=== PATIENT | female | born 1975 | race Caucasian/White ===

== ENCOUNTER → 2016-06-11 | Outpatient (CLI) | payer OTHER ==
--- NOTE | 2016-06-16 14:14 | MM ---
Reason for exam: screening (asymptomatic). Last mammogram was performed 5 years ago. History: Family history of breast cancer in mother. Physical Findings: A clinical breast exam by your physician is recommended on an annual basis and results should be correlated with mammographic findings. MG Screening Mammo w CAD Bilateral CC and MLO view(s) were taken. XCCL view(s) were taken of the left breast. Prior study comparison: June 18, 2011, mammogram, performed at [facility]. There are scattered fibroglandular densities. Finding: There are typically benign round, diffuse/scattered calcifications in the right breast. No significant changes in finding since June 18, 2011. ASSESSMENT: Benign, BI-RAD 2 RECOMMENDATION: Routine screening mammogram of both breasts in 1 year.
== END | disposition home or self-care (01) ==
LOC: RADMAMWWP 07:58
PROVIDERS: ATTEND Family Medicine
DX: Z12.31 Encounter for screening mammogram for malignant neoplasm of breast (principal)

== ENCOUNTER 2016-09-01 10:07 | Day surgery (SDC) | payer OTHER ==
[2016-08-28 16:00] VITALS: BMI 51.5
[~2016-09-01 10:07] MED LIST: LACTATED RINGERS 1,000 ML IV SCH
[2016-09-01 10:47] VITALS: RESP 16; TEMP 97.2
[2016-09-01 11:07] LABS: Glucose,Whole Blood 152 mg/dL (75-99)
[2016-09-01] MEDS ORDERED: LIDOCAINE 1% 20 ML VIAL (10MG/ML) FOR IV START INTRADERMA ONE (11:09)
[2016-09-01] MEDS ORDERED: MIDAZOLAM 2 MG/2 ML VIAL ONE (11:12)
[2016-09-01] MEDS ORDERED: fentaNYL (PF) 50 MCG/ML 2 ML AMP ONE (11:12)
[2016-09-01 11:46] LABS: ALT 71 U/L (9-52); AST 59 U/L (14-36)
[2016-09-01 11:51] LABS: Rheumatoid Factor, Qnt <9 IU/mL (<12)
--- NOTE | 2016-09-01 11:56 | P.PCN ---
Date of Procedure: 09/01/16 Preoperative Diagnosis: Postoperative Diagnosis: Procedure(s) Performed: Implants: Surgeon: Kamlesh Duarte Pathology: none sent Condition: stable Disposition: PACU Indications for Procedure: Operative Findings: Description of Procedure: PREOPERATIVE DIAGNOSIS: 1-Dizziness, headaches; r/o MS POSTOPERATIVE DIAGNOSIS: same PROCEDURE 1. Diagnostic lumbar puncture ANESTHESIA: Local with 1% lidocaine; IV sedation with Versed/fentanyl EBL: Minimal PROCEDURE INDICATION: The patient with dizziness and headaches and white lesions on brain MRI presents for diagnostic lumbar puncture as ordered by patients neurologist, Dr. Murphy. No use of blood thinners. Fluoroscopy was used because of patient's large body habitus. PROCEDURE DESCRIPTION / TECHNIQUE: The patient was seen and identified in the preoperative area. Risks, benefits, complications, and alternatives were discussed with the patient, including but not limited to bleeding, infection, nerve damage, headache, and allergic reactions to medications. The patient agreed to proceed with the procedure and signed the informed consent after all questions were answered. IV was started and blood was drawn for labwork by preop nursing staff, and vital signs were stable. Patient was taken to the OR and time out was completed to verify proper patient , procedure, and allergies. The patient was placed in the prone position on procedure table. The lumbosacral area was prepped and draped in the usual sterile fashion. Vital signs were closely monitored during the procedure and conscious sedation was used to decrease patient's anxiety. Using AP fluoroscopy, the L5-S1 nterlaminar space was identified, and the skin over this site was marked and then infiltrated with 1% lidocaine subcutaneously. Subsequently, a 22-gauge 7 (seven)-inch Quincke needle was inserted and advanced toward the epidural space. After a dural pop was noted , the stylet was removed and clear CSF was flowing freely through the needle. 12 ml was withdrawn and sent for testing as ordered by patients neurologist. Needle was withdrawn intact, skin was cleansed, and bandages were applied. COMPLICATIONS: None DISPOSITION / PLANS: The patient was placed in a supine position and transferred to the recovery area in a stable condition for observation. There was no evidence of lower extremity motor or sensory deficit after the procedure. Home discharge instructions were given to the patient by the staff, including to consume lots of oral fluids, to lie flat, and to consume a high amount of caffeine. The patient was reexamined prior to discharge and there were no issues. The patient will schedule a follow up with neurologist in 2-4 weeks to discuss results.
[2016-09-01] MEDS ORDERED: IV FLUID CONTINUATION 650 ML IV ONE (11:57)
[2016-09-01 12:07] LABS: Glucose,CSF 83 mg/dL (40-70)
[2016-09-01 12:19] VITALS: BP 112/65; PULSE 86
--- NOTE | 2016-09-01 12:39 | FL ---
EXAMINATION TYPE: FL guidance operating room DATE OF EXAM: 09/01/2016 12:19 PM HISTORY: Flouroscopy time 27 seconds of fluoroscopy provided. IMPRESSION: 1. Fluoroscopy time.
[2016-09-01 13:44] LABS: Appearance,CSF Clear
[2016-09-01 13:45] LABS: Red Blood Cell, CSF Crenated 0 %; Red Blood Cell, CSF Fresh 100 %
[2016-09-01 16:57] LABS: ANA w/Reflex to Titer NEGATIVE (NEGATIVE)
[2016-09-01 20:14] LABS: Treponemal Ab Non-Reactive (Non-Reactive)
[2016-09-02 06:06] LABS: Lyme Antibodies Total(IgG/IgM) 0.07 (<0.90)
[2016-09-03 23:57] LABS: Lyme Specimen Source Not Provided
== END 2016-09-01 15:33 | disposition home or self-care (01) ==
LOC: ORPAIN 10:07
PROVIDERS: ATTEND Anesthesiology
DX: R42 Dizziness and giddiness (principal); R51 Headache; E66.9 Obesity, unspecified; Z68.43 Body mass index [BMI] 50.0-59.9, adult
CPT/HCPCS: 81025; 86235 ×3; 87476; 86592; 86618; 84439; 88108; 84157; 82945; 82040; 82042; 82784; 83916; 82164 ×2; 83873; 84443; 84450; 84460; 85730; 86431; 85613; 89050; 85732; 86780; 86038; 86225; 62270; 99152; J2250; J3010

== ENCOUNTER 2016-11-03 08:22 | Emergency (ER) | payer OTHER ==
[2016-11-03 08:31] VITALS: BP 137/65; PULSE 88; RESP 18; TEMP 97
--- NOTE | 2016-11-03 08:54 | ED ---
General Adult HPI - General Chief complaint: ENT Stated complaint: Back Pain and Ear Pain Time Seen by Provider: 11/03/16 08:45 Source: patient, RN notes reviewed Mode of arrival: ambulatory Limitations: no limitations - History of Present Illness Initial comments: Patient 41-year-old female who presents emergency room today with a chief complaint of increased left ear pain. Does admit that she woke up Wednesday morning with ear pain. Went to the urgent care was prescribed amoxicillin. She states she's had a total of 5 doses of amoxicillin no relief. States she does have increased rhinorrhea and nasal congestion was also given a nasal spray. Patient states advised to use [id number]-[id number] Sudafed as well for her symptoms. Patient denies any other complaints or symptoms at this time. Patient denies any recent fever, chills, shortness of breath, chest pain, back pain, abdominal pain, nausea or vomiting, numbness or tingling, dysuria or hematuria, constipation or diarrhea, headaches or visual changes, or any other complaints. - Related Data Home Medications Medication Instructions Recorded Confirmed Levothyroxine Sodium [Synthroid] 150 mcg PO DAILY 02/15/14 11/03/16 Losartan [Cozaar] 50 mg PO HS 02/15/14 11/03/16 Carvedilol [Coreg] 6.25 mg PO BID 05/03/15 11/03/16 metFORMIN HCL 1,000 mg PO BID 05/03/15 11/03/16 Benztropine Mesylate 1 mg PO BID 08/28/16 11/03/16 Insulin Glargine [Lantus] 100 unit SQ HS 08/28/16 11/03/16 busPIRone HCl [Buspar] 30 mg PO BID 08/28/16 11/03/16 clonazePAM [KlonoPIN] 1 mg PO TID 08/28/16 11/03/16 lamoTRIgine [LaMICtal] 200 mg PO BID 08/28/16 11/03/16 sitaGLIPtin PHOSPHATE [Januvia] 100 mg PO QAM 08/28/16 11/03/16 Erythromycin Base [Erythromycin] 500 mg PO TID 11/03/16 11/03/16 Ibuprofen [Advil] 400 mg PO Q4H PRN 11/03/16 11/03/16 Ipratropium [place] 0.06%Nasal 2 spray EA NOSTRIL TID 11/03/16 11/03/16 [Atrovent Nasal 0.06%] Lisdexamfetamine Dimesylate 50 mg PO DAILY 11/03/16 11/03/16 [Vyvanse] Vilazodone HCl [Viibryd] 40 mg PO DAILY 11/03/16 11/03/16 Previous Rx's Medication Instructions Recorded ARIPiprazole [Abilify] 10 mg PO DAILY #7 tab 05/08/15 Amoxicillin/Potassium Clav 1 each PO Q12HR #20 tab 11/03/16 [Augmentin 875-125 Tablet] Allergies Allergy/AdvReac Type Severity Reaction Status Date / Time No Known Allergies Allergy Verified 11/03/16 08:42 Review of Systems ROS Statement: Those systems with pertinent positive or pertinent negative responses have been documented in the HPI. ROS Other: All systems not noted in ROS Statement are negative. Past Medical History Past Medical History: Heart Failure, Diabetes Mellitus, Eye Disorder, Fibromyalgia, GERD/Reflux, Hypertension, Liver Disease, Osteoarthritis (OA), Skin Disorder, Sleep Apnea/CPAP/BIPAP, Thyroid Disorder Additional Past Medical History / Comment(s): Pt has sleep apnea with cpap. Hx heart failure Feb 2014. Optic neurititis, left eye, fatty liver, Rosacea on face. History of Any Multi-Drug Resistant Organisms: MRSA Date of last positivie culture/infection: 2013 MDRO Source:: Chin, Nose Past Surgical History: Cholecystectomy, Tonsillectomy Additional Past Surgical History / Comment(s): Kidney stone stent placed left side. States bled out after tonsilectomy at 27 yrs of age and had blood transfusion. Past Anesthesia/Blood Transfusion Reactions: No Reported Reaction Past Psychological History: Anxiety, Bipolar, Depression Smoking Status: Current some day smoker Past Alcohol Use History: Occasional Past Drug Use History: None Reported - Past Family History Son(s) Family Medical History: Seizure Disorder Mother Family Medical History: No Reported History Additional Family Medical History / Comment(s): MOTHER IS ALIVE AND DOING WELL AT AGE 56, Bipolar Father Family Medical History: No Reported History Additional Family Medical History / Comment(s): Hepatitis General Exam - General Exam Comments Initial Comments: General: The patient is awake and alert, in no distress, and does not appear acutely ill. Eye: Pupils are equal, round and reactive to light, extra-ocular movements are intact. No nystagmus. There is normal conjunctiva bilaterally. No signs of icterus. Ears, nose, mouth and throat: There are moist mucous membranes and no oral lesions. Tenderness both over frontal and maxillary sinuses. Increased erythema to the left ear with pressure behind the TM. Right TM clear. Neck: The neck is supple, there is no tenderness or JVD. Cardiovascular: There is a regular rate and rhythm. No murmur, rub or gallop is appreciated. Respiratory: Lungs are clear to auscultation, respirations are non-labored, breath sounds are equal. No wheezes, stridor, rales, or rhonchi. Musculoskeletal: Normal ROM, no tenderness. Strength 5/5. Sensation intact. Pulses equal bilaterally 2+. Neurological: A&O x 3. CN II-XII intact, There are no obvious motor or sensory deficits. Coordination appears grossly intact. Speech is normal. Skin: Skin is warm and dry and no rashes or lesions are noted. Psychiatric: Cooperative, appropriate mood & affect, normal judgment. Limitations: no limitations Course Vital Signs 11/03/16 08:26 Temperature 97.0 F L Pulse Rate 88 Respiratory 18 Rate Blood Pressure 137/65 O2 Sat by Pulse 97 Oximetry Medical Decision Making - Medical Decision Making Patient does have tenderness over the sinuses. Advised that Augmentin be best for sinus infection. Advised to use [id number] Sudafed, Claritin or Zyrtec along with nasal spray that she uses prescription prescribed. Disposition Clinical Impression: Acute sinusitis Disposition: HOME SELF-CARE Condition: Good Instructions: Sinusitis (ED) Additional Instructions: Please use medication as discussed. Please follow-up with family doctor in the next 2 days of symptoms have not improved. Please return to emergency room if the symptoms increase or worsen or for any other concerns. Prescriptions: Amoxicillin/Potassium Clav [Augmentin 875-125 Tablet] 1 each PO Q12HR #20 tab Referrals: Keshia Ferrell MD [Primary Care Provider] - 1-2 days Time of Disposition: 08:53
== END 2016-11-03 08:57 | disposition home or self-care (01) ==
LOC: EC 08:22
DX: J01.80 Other acute sinusitis (principal); I50.9 Heart failure, unspecified; E11.9 Type 2 diabetes mellitus without complications; I10 Essential (primary) hypertension; K21.9 Gastro-esophageal reflux disease without esophagitis; F31.9 Bipolar disorder, unspecified; F17.200 Nicotine dependence, unspecified, uncomplicated; Z79.4 Long term (current) use of insulin; Z79.899 Other long term (current) drug therapy; Z90.89 Acquired absence of other organs
CPT/HCPCS: 99283

== ENCOUNTER → 2018-03-23 | Outpatient (CLI) | payer OTHER ==
--- NOTE | 2018-03-23 13:54 | XR ---
Bilateral knees HISTORY: Knee pain 3 views of each knee submitted on a total 6 images Joint space loss, marginal spurring is present especially in the medial compartments. Alignment and b one mineralization are maintained. Spurring also present at the patellofemoral joints. No evident brigitte nt effusion. IMPRESSION: Osteoarthritis.
== END ==
LOC: RADXRMAIN 09:03
PROVIDERS: ATTEND Orthopaedic Surgery
DX: M17.0 Bilateral primary osteoarthritis of knee (principal)

== ENCOUNTER 2018-12-14 09:31 | Emergency (ER) | payer MEDICARE, OTHER ==
[2018-12-14 09:41] VITALS: TEMP 98.1
--- NOTE | 2018-12-14 10:51 | ED ---
Female Urogenital HPI - General Source: patient Mode of arrival: ambulatory Limitations: no limitations <Makenna Palacios - Last Filed: 12/14/18 19:22> <Moustapha Keysah Rasta - Last Filed: 12/20/18 02:28> - General Chief complaint: Urogenital Stated complaint: Frequent Urination Time Seen by Provider: 12/14/18 09:51 - History of Present Illness Initial comments: 43-year-old female with history of diabetes hypertension, bipolar presented for chief complaint of incontinence x 2 hours ago. Patient states that before she went to bed she felt like she was manic, she states that she took her baclofen for chronic back pain she denies any increases recently in the back pain. She states that she had some weird dreams throughout the night and woke up urinating the bed. Patient states that she has also had pneumonia for the last two weeks, she states that her chest has had some pain on occasion with the pneumonia, denies any changes and increases. States it is sharp with inspiratio on occasion. Patient states she has some lower abdominal pressure, no significant pain. Denies upper upper abdominal pain, pain in the chest with ambulation, SOB. Denies dysuria, urgency or frequency, denies loss of bowel control, fever, leg weakness, pain down the legs. Patient remaining ROS (-). Upon arrival patient appears well, she is ambulating without difficulty appears well. (Makenna Palacios) - Related Data Home Medications Medication Instructions Recorded Confirmed Levothyroxine Sodium [Synthroid] 150 mcg PO DAILY 02/15/14 12/14/18 metFORMIN HCL 1,000 mg PO BID 05/03/15 12/14/18 clonazePAM [KlonoPIN] 1 mg PO TID 08/28/16 12/14/18 lamoTRIgine [LaMICtal] 200 mg PO BID 08/28/16 12/14/18 sitaGLIPtin PHOSPHATE [Januvia] 100 mg PO DAILY 08/28/16 12/14/18 Vilazodone HCl [Viibryd] 40 mg PO DAILY 11/03/16 12/14/18 Albuterol Nebulized [Ventolin 2.5 mg INHALATION RT-Q4H PRN 12/14/18 12/14/18 Nebulized] Brimonidine Tartrate [Alphagan P 1 drop LEFT EYE BID 12/14/18 12/14/18 0.2% Ophth Soln] Cariprazine HCl [Vraylar] 3 mg PO DAILY 12/14/18 12/14/18 Dorzolamide/Timolol/Pf 1 tab PO BID 12/14/18 12/14/18 [Dorzolamide-Timolol 2%-0.5%] Latanoprost [Xalatan 0.005%] 1 drop BOTH EYES HS 12/14/18 12/14/18 Levofloxacin [Levaquin] 750 mg PO DAILY 12/14/18 12/14/18 Lisdexamfetamine Dimesylate 70 mg PO DAILY 12/14/18 12/14/18 [Vyvanse] Losartan [Cozaar] 50 mg PO DAILY 12/14/18 12/14/18 Omeprazole 20 mg PO DAILY 12/14/18 12/14/18 busPIRone HCL [Buspar] 30 mg PO BID 12/14/18 12/14/18 hydrOXYzine HCL [Atarax] 25 mg PO TID PRN 12/14/18 12/14/18 Allergies Allergy/AdvReac Type Severity Reaction Status Date / Time No Known Allergies Allergy Verified 12/14/18 10:23 Review of Systems ROS Other: All systems not noted in ROS Statement are negative. <Makenna Palacios - Last Filed: 12/14/18 19:22> ROS Other: All systems not noted in ROS Statement are negative. <Valerie Keys - Last Filed: 12/20/18 02:28> ROS Statement: Those systems with pertinent positive or pertinent negative responses have been documented in the HPI. Past Medical History Past Medical History: Heart Failure, Diabetes Mellitus, Eye Disorder, GERD/Reflux, Hypertension, Liver Disease, Osteoarthritis (OA), Skin Disorder, Sleep Apnea/CPAP/BIPAP, Thyroid Disorder Additional Past Medical History / Comment(s): Pt has sleep apnea with cpap. Hx heart failure Feb 2014 (patient states he no longer has heart failure-2019). Optic neurititis, left eye, fatty liver, Rosacea on face. History of Any Multi-Drug Resistant Organisms: MRSA Date of last positivie culture/infection: 2013 MDRO Source:: Chin, Nose Past Surgical History: Cholecystectomy, Tonsillectomy Additional Past Surgical History / Comment(s): Kidney stone stent placed left side. States bled out after tonsilectomy at 27 yrs of age and had blood transfusion. Past Anesthesia/Blood Transfusion Reactions: No Reported Reaction Past Psychological History: Anxiety, Bipolar, Depression Smoking Status: Former smoker Past Alcohol Use History: Occasional Past Drug Use History: None Reported - Past Family History Son(s) Family Medical History: Seizure Disorder Mother Family Medical History: No Reported History Additional Family Medical History / Comment(s): MOTHER IS ALIVE AND DOING WELL AT AGE 56, Bipolar Father Family Medical History: No Reported History Additional Family Medical History / Comment(s): Hepatitis <Makenna Palacios - Last Filed: 12/14/18 19:22> General Exam Limitations: no limitations <Makenna Palacios - Last Filed: 12/14/18 19:22> - General Exam Comments Initial Comments: General: The patient is awake and alert, in no distress, and does not appear acutely ill. Eye: Pupils are equal, round and reactive to light, extra-ocular movements are intact. No nystagmus. There is normal conjunctiva bilaterally. No signs of icterus. Ears, nose, mouth and throat: There are moist mucous membranes and no oral lesions. Neck: The neck is supple, there is no tenderness or JVD. Cardiovascular: There is a regular rate and rhythm. No murmur, rub or gallop is appreciated. Respiratory: Lungs are clear to auscultation, respirations are non-labored, breath sounds are equal. No wheezes, stridor, rales, or rhonchi. Gastrointestinal: Soft, non-distended, non-tender abdomen without masses or organomegaly noted. There is no rebound or guarding present. Bowel sounds are unremarkable. Shruti rectal tone. Musculoskeletal: No midline tenderness to palpation of the thoracic or lumbar spine. Normal ROM, no tenderness. Strength 5/5 of the LE b/l. Sensation intact of the LE b/l. DPpulses equal bilaterally 2+. Neurological: A&O x 3. CN II-XII intact, There are no obvious motor or sensory deficits. Coordination appears grossly intact. Speech is normal. Skin: Skin is warm and dry and no rashes or lesions are noted. Psychiatric: Cooperative, appropriate mood & affect, normal judgment. (Makenna Palacios) Course <Makenna Palacios - Last Filed: 12/14/18 19:22> Vital Signs 12/14/18 12/14/18 12/14/18 09:36 11:57 18:15 Temperature 98.1 F Pulse Rate 105 H 111 H 71 Respiratory 18 22 16 Rate Blood Pressure 173/83 168/78 121/78 O2 Sat by Pulse 97 100 98 Oximetry - Reevaluation(s) Reevaluation #1: Patient crying in room, states she feels like mental break down, patient has multisystem complaints that do no appear related. Patient states she feel this could be psych related. CTA is pending will medically clear patient for EPS evaluation--pending results. 12/14/18 12:36 (Makenna Palacios) Reevaluation #2: Patient admitting to drinking the night before as well 3 margaritas. 12/14/18 13:00 (Makenna Palacios) Reevaluation #3: Patient now states she also has been drinking 1/2pint to 1 pint of alcohol for quite some time, patient was cutting back her self. CIWA 3 (Makenna Palacios) Medical Decision Making - Lab Data Result diagrams: 12/14/18 10:45 12/14/18 10:45 - EKG Data -: EKG Interpreted by Me <Makenna Palacios - Last Filed: 12/14/18 19:22> - Lab Data Result diagrams: 12/14/18 10:45 12/14/18 10:45 <Valerie Keys - Last Filed: 12/20/18 02:28> - Medical Decision Making 43-year-old male presented for multisystem complaints. EKG findings. Patient appears anxious states she felt manic yesterday. Patient amidst the trachea L call later on during visit. Initially patient was complaining of incontinence. She has been constant throughout her time in the emergency department provide urine sample. No midline back pain complaints of back pain. Full muscle strength lower extremity is patient is neurovascularly intact. Patient then change the complaint of shortness of breath. Patient has history of recent pneumonia she is currently on Levaquin. Chest x-ray within normal limits. Dimer was mildly elevated CT was obtained at this time revealing no evidence of pulmonary embolism. Patient began crying in the exam room. She states she feels not like herself. Family is concerned she has manic they are at bedside. Patient states she thinks she needs to be admitted to the hospital for psychiatric reasons. At this time we altered here the patient's symptoms are most likely related to psychosomatic response. Patient was given ativan. Patient urinarlysis revealed glucose, no ketones. or signs of infection. Psychiatric nurse recommended discharge home with outpatient psychiatric services. Patient was reevaluated prior to discharge, VS stable appears well. No complaints. Happy to be going home. Briefly discussed case with Dr. Keys who was agreeable with psychiatric course. (Makenna Palacios) I was available for consultation in the emergency department. The history and physical exam were done by the midlevel provider. I was consulted for this patient's care. I reviewed the case midlevel provider and based on their presentation of the patient, I agree with the assessment, medical decision narendrain g and plan of care as documented. Chart was dictated using [employer] software. Attempts were made to correct any dictation errors however some typographical errors may persist. (Valerie Keys) - Lab Data Lab Results 12/14/18 12/14/18 12/14/18 Range/Units 10:45 10:45 10:45 WBC 7.4 (3.8-10.6) k/uL RBC 3.80 (3.80-5.40) m/uL Hgb 9.1 L (11.4-16.0) gm/dL Hct 31.0 L (34.0-46.0) % MCV 81.8 (80.0-100.0) fL MCH 23.9 L (25.0-35.0) pg MCHC 29.2 L (31.0-37.0) g/dL RDW 18.7 H (11.5-15.5) % Plt Count 226 (150-450) k/uL Neutrophils % 65 % Lymphocytes % 23 % Monocytes % 6 % Eosinophils % 4 % Basophils % 1 % Neutrophils # 4.8 (1.3-7.7) k/uL Lymphocytes # 1.7 (1.0-4.8) k/uL Monocytes # 0.4 (0-1.0) k/uL Eosinophils # 0.3 (0-0.7) k/uL Basophils # 0.1 (0-0.2) k/uL Hypochromasia Marked Poikilocytosis Slight Anisocytosis Slight Microcytosis Slight D-Dimer 0.68 H (<0.60) mg/L FEU Sodium 137 (137-145) mmol/L Potassium 4.8 (3.5-5.1) mmol/L Chloride 100 (98-107) mmol/L Carbon Dioxide 25 (22-30) mmol/L Anion Gap 12 mmol/L BUN 8 (7-17) mg/dL Creatinine 0.52 (0.52-1.04) mg/dL Est GFR (CKD-EPI)AfAm >90 (>60 ml/min/1.73 sqM) Est GFR (CKD-EPI)NonAf >90 (>60 ml/min/1.73 sqM) Glucose 307 H (74-99) mg/dL Calcium 9.3 (8.4-10.2) mg/dL Total Bilirubin 1.0 (0.2-1.3) mg/dL AST 162 H (14-36) U/L ALT 79 H (9-52) U/L Alkaline Phosphatase 297 H (38-126) U/L Total Protein 8.5 H (6.3-8.2) g/dL Albumin 4.1 (3.5-5.0) g/dL Urine Color Urine Appearance (Clear) Urine pH (5.0-8.0) Ur Specific [place] (1.001-1.035) Urine Protein (Negative) Urine Glucose (UA) (Negative) Urine Ketones (Negative) Urine Blood (Negative) Urine Nitrite (Negative) Urine Bilirubin (Negative) Urine Urobilinogen (<2.0) mg/dL Ur Leukocyte Esterase (Negative) Urine WBC (0-5) /hpf Ur Squamous Epith Cells (0-4) /hpf Calcium Oxalate Crystal (None) /hpf Urine Mucus (None) /hpf 12/14/18 Range/Units 14:30 WBC (3.8-10.6) k/uL RBC (3.80-5.40) m/uL Hgb (11.4-16.0) gm/dL Hct (34.0-46.0) % MCV (80.0-100.0) fL MCH (25.0-35.0) pg MCHC (31.0-37.0) g/dL RDW (11.5-15.5) % Plt Count (150-450) k/uL Neutrophils % % Lymphocytes % % Monocytes % % Eosinophils % % Basophils % % Neutrophils # (1.3-7.7) k/uL Lymphocytes # (1.0-4.8) k/uL Monocytes # (0-1.0) k/uL Eosinophils # (0-0.7) k/uL Basophils # (0-0.2) k/uL Hypochromasia Poikilocytosis Anisocytosis Microcytosis D-Dimer (<0.60) mg/L FEU Sodium (137-145) mmol/L Potassium (3.5-5.1) mmol/L Chloride (98-107) mmol/L Carbon Dioxide (22-30) mmol/L Anion Gap mmol/L BUN (7-17) mg/dL Creatinine (0.52-1.04) mg/dL Est GFR (CKD-EPI)AfAm (>60 ml/min/1.73 sqM) Est GFR (CKD-EPI)NonAf (>60 ml/min/1.73 sqM) Glucose (74-99) mg/dL Calcium (8.4-10.2) mg/dL Total Bilirubin (0.2-1.3) mg/dL AST (14-36) U/L ALT (9-52) U/L Alkaline Phosphatase (38-126) U/L Total Protein (6.3-8.2) g/dL Albumin (3.5-5.0) g/dL Urine Color Yellow Urine Appearance Clear (Clear) Urine pH 5.5 (5.0-8.0) Ur Specific [place] 1.029 (1.001-1.035) Urine Protein 1+ H (Negative) Urine Glucose (UA) 4+ H (Negative) Urine Ketones Negative (Negative) Urine Blood Negative (Negative) Urine Nitrite Negative (Negative) Urine Bilirubin Negative (Negative) Urine Urobilinogen <2.0 (<2.0) mg/dL Ur Leukocyte Esterase Negative (Negative) Urine WBC 2 (0-5) /hpf Ur Squamous Epith Cells 2 (0-4) /hpf Calcium Oxalate Crystal Occasional H (None) /hpf Urine Mucus Rare H (None) /hpf - EKG Data EKG Comments: Ventricular rate 102 bpm, IA interval 136 most seconds, to administration 92 ms, QT/QTC 346/450 ms. Sinus tachycardia. No ST elevation or depression noted. (Makenna Palacios) Disposition Is patient prescribed a controlled substance at d/c from ED?: No Time of Disposition: 19:20 <Makenna Palacios - Last Filed: 12/14/18 19:22> <Moustapha Keysah Rasta - Last Filed: 12/20/18 02:28> Clinical Impression: Bladder incontinence, Anxiety, Alcohol abuse, Depression, Hx of bipolar disorder, Atypical chest pain Disposition: HOME SELF-CARE Condition: Good Instructions (If sedation given, give patient instructions): Alcohol Withdrawal (ED) Additional Instructions: Please use medication as discussed. Please follow-up with family doctor in the next 2 days.. Please return to emergency room if the symptoms increase or worsen or for any other concerns. Referrals: Keshia Ferrell MD [Primary Care Provider] - 1-2 days
[2018-12-14 11:01] LABS: Anisocytosis Slight; Basophils # (A) 0.1 k/uL (0-0.2); Basophils % (A) 1 %; Eosinophils # (A) 0.3 k/uL (0-0.7); Eosinophils % (A) 4 %; HGB 9.1 gm/dL (11.4-16.0); Hypochromasia Marked; Lymphocytes # (A) 1.7 k/uL (1.0-4.8); Lymphocytes % (A) 23 %; MCH 23.9 pg (25.0-35.0); MCHC 29.2 g/dL (31.0-37.0); MCV 81.8 fL (80.0-100.0); Mean Platelet Volume 6.6; Microcytosis Slight; Monocytes # (A) 0.4 k/uL (0-1.0); Monocytes % (A) 6 %; Neutrophils # (A) 4.8 k/uL (1.3-7.7); Neutrophils % (A) 65 %; Platelet Count 226 k/uL (150-450); Poikilocytosis Slight; RDW 18.7 % (11.5-15.5); WBC 7.4 k/uL (3.8-10.6)
[2018-12-14 11:18] LABS: ALT 79 U/L (9-52); AST 162 U/L (14-36); African American GFR (CKD) >90 (>60 ml/min/1.73 sqM); Albumin 4.1 g/dL (3.5-5.0); Alkaline Phosphatase 297 U/L (38-126); Anion Gap 12 mmol/L; Blood Urea Nitrogen 8 mg/dL (7-17); Calcium 9.3 mg/dL (8.4-10.2); Carbon Dioxide 25 mmol/L (22-30); Chloride 100 mmol/L (98-107); Glucose 307 mg/dL (74-99); Sodium 137 mmol/L (137-145); Total Protein 8.5 g/dL (6.3-8.2)
[2018-12-14 11:23] LABS: Potassium 4.8 mmol/L (3.5-5.1)
--- NOTE | 2018-12-14 11:43 | XR ---
EXAMINATION TYPE: XR chest 2V DATE OF EXAM: 12/14/2018 COMPARISON: NONE TECHNIQUE: PA and lateral views submitted. HISTORY: 02/15/2014 FINDINGS: The lungs are clear and there is no pneumothorax, pleural effusion, or focal pneumonia. No overt fa ilure. Linear changes involving both upper lung suggestive scar or atelectasis. Hypertrophic and dege nerative change of the spine. IMPRESSION: 1. No acute process.
[2018-12-14] MEDS ORDERED: SODIUM CHLORIDE 0.9% 500 ML 500 ML IV ONE (12:32)
[2018-12-14] MEDS ORDERED: LORazepam 2 MG/ML INJ IV STA (12:37)
--- NOTE | 2018-12-14 13:38 | CT ---
EXAMINATION TYPE: CT angio chest DATE OF EXAM: 12/14/2018 COMPARISON: 02/15/2014 HISTORY: 43 year-old female shortness of breath, elevated d dimer TECHNIQUE: Contiguous axial scanning of the chest performed with IV Contrast, patient injected with 1 00 mL of Isovue 370. Coronal/sagittal MIP reconstructions performed. CT DLP: 751.8 mGycm Automated exposure control for dose reduction was used. FINDINGS: Heart upper limits of normal in size without pericardial effusion. Aorta normal caliber conventional arch vessel branching anatomy. Prominent but nonenlarged 1.3 cm subcarinal lymph node. Borderline sized 1.0 cm right hilar lymph nod e. Nonenlarged 7 mm pretracheal lymph node. These lymph nodes are smaller as compared to 2013. Extensive respiratory motion artifact. No flattening of the interventricular septum contrast into the hepatic veins. Allowing for motion, no pulmonary embolus is seen in the upper midlungs. Many of the segmental and more distal arterial branches in the left lower lung are very limited and nondiagnostic . No definite pulmonary embolus. 5 mm nodule in the superior segment left lower lobe, axial image 30. Strandy atelectasis anterior low er lungs. 5 mm right middle lobe pulmonary nodule, axial image 75. No consolidation or pleural effusion. Visualized upper abdomen show low attenuation of the liver and bulky appearance to the spleen. Bones: No osseous destructive process. IMPRESSION: 1. Breathing motion artifacts. Many of the branches in the left lower lung are limited to nondiagnost ic. No definite pulmonary embolus elsewhere. 2. Nonenlarged to a few borderline sized mediastinal and right hilar lymph nodes measuring up to 1.0 cm, likely reactive/post inflammatory. These are noted to be smaller as compared to 2013. 3. A couple 5 mm pulmonary nodules. Six-month follow-up CT chest recommended to ensure stability. 4. Suspect underlying hepatic steatosis and possible hepatosplenomegaly. Upper abdomen only partially imaged.
[2018-12-14 15:03] LABS: Appearance,Urine Clear (Clear); Bilirubin,Urine Negative (Negative); Blood,Urine Negative (Negative); Calcium Oxalate Crystals,Urine Occasional /hpf; Color,Urine Yellow; Glucose,Urine (UA) 4+ (Negative); Ketones,Urine Negative (Negative); Leukocyte Esterase,Urine Negative (Negative); Mucus,Urine Rare /hpf; Nitrite,Urine Negative (Negative); PH, Urine 5.5 (5.0-8.0); Protein,Urine 1+ (Negative); Specific Gravity,Urine 1.029 (1.001-1.035); Squamous Epithelial Cell,Urine 2 /hpf (0-4); Urobilinogen,Urine <2.0 mg/dL (<2.0); WBC,Urine 2 /hpf (0-5)
[2018-12-14] MEDS ORDERED: LORazepam 2 MG/ML INJ IV PRN ×3 (17:25)
[2018-12-14] MEDS ORDERED: THIAMINE 100 MG/ML 2 ML VIAL IM STA (17:31)
[2018-12-14 19:11] VITALS: BP 121/78; PULSE 71; RESP 16
[2018-12-14] MEDS: THIAMINE 100 MG TAB PO SCH (20:12)
== END 2018-12-14 19:00 | disposition home or self-care (01) ==
LOC: EC 09:31
DX: F41.9 Anxiety disorder, unspecified (principal); F31.30 Bipolar disorder, current episode depressed, mild or moderate severity, unspecified; R39.81 Functional urinary incontinence; F10.10 Alcohol abuse, uncomplicated; R07.89 Other chest pain; R10.30 Lower abdominal pain, unspecified; G89.29 Other chronic pain; M54.9 Dorsalgia, unspecified; E11.9 Type 2 diabetes mellitus without complications; I11.0 Hypertensive heart disease with heart failure; I50.9 Heart failure, unspecified; H46.9 Unspecified optic neuritis; K21.9 Gastro-esophageal reflux disease without esophagitis; E07.9 Disorder of thyroid, unspecified; G47.30 Sleep apnea, unspecified; M19.90 Unspecified osteoarthritis, unspecified site; Z79.84 Long term (current) use of oral hypoglycemic drugs; Z79.890 Hormone replacement therapy; Z79.899 Other long term (current) drug therapy; Z53.9 Procedure and treatment not carried out, unspecified reason; Z87.891 Personal history of nicotine dependence; Z99.89 Dependence on other enabling machines and devices; Z86.14 Personal history of Methicillin resistant Staphylococcus aureus infection; F31.31 Bipolar disorder, current episode depressed, mild
CPT/HCPCS: 82075; 36415; 93005; 85379; 80053; 85025; 81001; 71046; 71275; 96374; 99285; J2060; Q9967